=== PATIENT | male | born 1950 | race Caucasian/White ===

== ENCOUNTER 2016-08-26 09:53 | Emergency (ER) | payer MEDICARE ==
[2016-08-26 11:24] VITALS: BP 161/80
--- NOTE | 2016-08-26 12:40 | UC ---
Throat Pain/Nasal Liam HPI - HPI Summary HPI Summary: cough, sinus pain, sore throat and chest congestion--patient just flew in from [place] - History of Current Complaint Chief Complaint: UCRespiratory Stated Complaint: COUGH CONGESTION Time Seen by Provider: 08/26/16 12:33 Hx Obtained From: Patient Onset/Duration: Gradual Onset, Lasting Days - 10, Still Present Severity: Moderate Pain Intensity: 5 Pain Scale Used: 0-10 Numeric Cough: Nonproductive Associated Signs & Symptoms: Positive: Hoarseness, Sinus Discomfort, Nasal Discharge, Fever - subjective - Allergies/Home Medications Allergies/Adverse Reactions: Allergies Allergy/AdvReac Type Severity Reaction Status Date / Time No Known Allergies Allergy Verified 05/17/16 14:35 Home Medications: Home Medications Multiple Vitamins W/ Minerals [Multivitamin Men] 1 tab PO 08/26/16 [History] PMH/Surg Hx/FS Hx/Imm Hx Previously Healthy: No Endocrine History Of: Denies: Diabetes Cardiovascular History Of: Reports: Hypertension - ELEVATED IN OFFICE BUT NO MEDS Denies: Pacemaker/ICD GI/ History Of: Denies: Renal Disease Psychological History Of: Reports: Anxiety - CONTROL WITH MEDS - Surgical History Surgical History: Yes Surgery Procedure, Year, and Place: 1982 TONSILLECTOMY, [facility]. 2008 bladder polyps removed, [facility]. ROHAN IN KNEE - STUNT GROWTH ON RIGHT LEG X 2, [facility]. RIGHT FOOT SURGERY TO STRAIGHTEN FOOT, [facility]. 1967 LAZY EYE - MUSCLE CORRECTION, [facility]. TEETH EXTRACTION. EGD TO REMOVE FOREIGN BODY X2, [facility]. 1979' VASECTOMY, [facility] - Family History Known Family History: Positive: None Family History: no known medical issues in family lineage - Social History Occupation: Retired Lives: With Family Alcohol Use: Daily Alcohol Amount: 2-3 CANS BEER PER DAY Substance Use Type: None Smoking Status (MU): Former Smoker Type: Cigarettes Amount Used/How Often: 1.5-2 PPD FOR ABOUT 44 YEARS Length of Time of Smoking/Using Tobacco: 44 YEARS Have You Smoked in the Last Year: No When Did the Patient Quit Smoking/Using Tobacco: 2010 Review of Systems Constitutional: Fever - subjective, Fatigue Skin: Negative Eyes: Negative ENT: Sore Throat, Ear Ache, Nasal Discharge Respiratory: Cough Cardiovascular: Negative Gastrointestinal: Negative Genitourinary: Negative Motor: Negative Neurovascular: Negative Musculoskeletal: Negative Neurological: Negative Psychological: Negative All Other Systems Reviewed And Are Negative: Yes Physical Exam Triage Information Reviewed: Yes Appearance: No Pain Distress, Well-Nourished, Ill-Appearing - mild Vital Signs: Initial Vital Signs Temp 98.2 F 08/26/16 11:20 Pulse 69 08/26/16 11:20 Resp 18 08/26/16 11:20 BP 161/80 08/26/16 11:20 Pulse Ox 95 08/26/16 11:20 Vital Signs Reviewed: Yes Eye Exam: Normal Eyes: Positive: Conjunctiva Clear ENT Exam: Other ENT: Positive: Hearing grossly normal, Pharyngeal erythema, Nasal congestion, Nasal drainage, TMs normal. Negative: Tonsillar swelling, Tonsillar exudate, Trismus, Muffled/hoarse voice Neck exam: Normal Neck: Positive: Supple, Nontender, No Lymphadenopathy Respiratory Exam: Normal Respiratory: Positive: Chest non-tender, Lungs clear, Normal breath sounds, No respiratory distress, No accessory muscle use Cardiovascular Exam: Normal Cardiovascular: Positive: RRR, No Murmur, Pulses Normal, Brisk Capillary Refill Musculoskeletal Exam: Normal Musculoskeletal: Positive: Strength Intact, ROM Intact, No Edema Neurological Exam: Normal Neurological: Positive: Alert, Muscle Tone Normal Psychological Exam: Normal Skin Exam: Normal Diagnostics - Laboratory Diagnostic Studies Completed/Ordered: RST(-) Throat Pain/Nasal Course/Dx - Course Assessment/Plan: zithromax, flonase, increase fluids re-check prn - Differential Dx/Diagnosis Differential Diagnosis/HQI/PQRI: Laryngitis, Pharyngitis, Sinusitis, URI Provider Diagnoses: Bronchitis, URI Discharge - Discharge Plan Condition: Stable Disposition: HOME Prescriptions: Azithromycin TAB* [Zithromax TAB (Z-BIBIANA)*] 0 mg PO .Z-BIBIANA INSTRUCTIONS #6 tab Benzonatate CAP* [Tessalon CAP*] 100 mg PO TID PRN #30 cap PRN Reason: Cough Fluticasone NASAL SPRAY 50MCG* [Flonase NASAL SPRAY 50MCG*] 2 spray BOTH NARES DAILY #1 btl Patient Education Materials: Viral Syndrome (ED), Acute Cough (ED) Referrals: Aaron Bryan MD [Primary Care Provider] - If Needed
== END 2016-08-26 13:13 | disposition home or self-care (01) ==
LOC: UCEAST 09:53
DX: J40 Bronchitis, not specified as acute or chronic (principal); J06.9 Acute upper respiratory infection, unspecified; Z87.891 Personal history of nicotine dependence
CPT/HCPCS: 87651; 99212; G0463

== ENCOUNTER 2017-08-12 04:03 | Observation (INO) | payer MEDICARE ==
[2017-08-12] MEDS ORDERED: NS 0.9% 1000 ML* 1,000 ML IV SCH (04:15)
[2017-08-12 04:33] LABS: Hematocrit 43 % (42-52); Mean Corpuscular HGB Conc 35 g/dl (31-36); Mean Corpuscular Hemoglobin 33 pg (27-31); Mean Corpuscular Volume 96 fL (80-94); Mean Platelet Volume 7 um3 (7.4-10.4); Red Cell Distribution Width 13 % (10.5-15); White Blood Count 6.8 10^3/ul (3.5-10.8)
[2017-08-12 04:42] LABS: BUN/Creatinine Ratio 17.1 (8-20); Calcium 9.1 mg/dL (8.6-10.3); EGFR African American 145.1 (>60); EGFR Non-African American 112.8 (>60); Globulin 2.9 g/dL (2-4); Potassium 3.2 mmol/L (3.5-5.0); Total Bilirubin 0.4 mg/dL (0.2-1.0); Total Protein 6.9 g/dL (6.4-8.9)
[2017-08-12] MEDS ORDERED: Potassium Chlor TAB* 20 MEQ TAB.ER PO ONE (05:22)
--- NOTE | 2017-08-12 05:44 | ED ---
Sudhir Minaya Tiffany, scribed for Kyree Negron on 08/12/17 at 0410 . Neurological HPI - HPI Summary HPI Summary: This patient is a 66 year old M BIBA to [facility] with a chief complaint of confusion since minutes ago. Symptoms aggravated by nothing. Symptoms alleviated by nothing. Per EMS, the patients tried to wake the patient up because he was snoring, but was unable to do so. Other family members were also unable to wake the patient. When woken up, the patient was slow at answering simple questions and had a hard time remembering things. Patient says that the tip of his tongue feels numb. His right eyelid is slightly drooped. Patient denies numbness, headache, and vision changes. The patient does not have history of strokes. - History of Current Complaint Stated Complaint: CONFUSION Time Seen by Provider: 08/12/17 04:05 Hx Obtained From: Patient, EMS Onset/Duration: Started minutes ago, Still Present Aggravating: Nothing Alleviating: Nothing Associated Signs and Symptoms: Positive: Negative - Numbness, headache, vision changes - Allergy/Home Medications Allergies/Adverse Reactions: Allergies Allergy/AdvReac Type Severity Reaction Status Date / Time No Known Allergies Allergy Verified 05/17/16 14:35 PMH/Surg Hx/FS Hx/Imm Hx Previously Healthy: No Endocrine/Hematology History: Denies: Hx Diabetes Cardiovascular History: Reports: Hx Hypertension - ELEVATED IN OFFICE BUT NO MEDS Denies: Hx Pacemaker/ICD Respiratory History: Reports: Other Respiratory Problems/Disorders - EX SMOKER History: Denies: Hx Renal Disease Sensory History: Reports: Hx Cataracts - MINOR, Hx Contacts or Glasses - GLASSES Denies: Hx Hearing Aid Opthamlomology History: Reports: Hx Cataracts - MINOR, Hx Contacts or Glasses - GLASSES Neurological History: Reports: Other Neuro Impairments/Disorders - H/O POLIO - WEARS A BRACE ON LEFT LEG Psychiatric History: Reports: Hx Anxiety - CONTROL WITH MEDS, Hx Panic Disorder - ANXIETY - Surgical History Surgery Procedure, Year, and Place: 1982 TONSILLECTOMY, [facility]. 2008 bladder polyps removed, [facility]. ROHAN IN KNEE - STUNT GROWTH ON RIGHT LEG X 2, [facility]. RIGHT FOOT SURGERY TO STRAIGHTEN FOOT, [facility]. 1967 LAZY EYE - MUSCLE CORRECTION, [facility]. TEETH EXTRACTION. EGD TO REMOVE FOREIGN BODY X2, [facility]. 1980'S VASECTOMY, [facility] Hx Anesthesia Reactions: No Infectious Disease History: Reports: Hx Shingles - Family History Known Family History: Positive: Other - no known medical issues in family lineage - Social History Alcohol Use: Daily Alcohol Amount: 2-3 CANS BEER PER DAY Hx Substance Use: No Substance Use Type: Reports: None Hx Tobacco Use: Yes Smoking Status (MU): Former Smoker Type: Cigarettes Amount Used/How Often: 1.5-2 PPD FOR ABOUT 44 YEARS Length of Time of Smoking/Using Tobacco: 44 YEARS Have You Smoked in the Last Year: No Review of Systems Positive: Other - tip of his tongue feels numb Positive: Other - NEGATIVE: visual changes Positive: Other - eyelid is slightly drooped Neurological: Other - Confusion, slow at answering simple questions, had a hard time remembering things Negative: Headache, Numbness All Other Systems Reviewed And Are Negative: Yes Physical Exam Triage Information Reviewed: Yes Vital Signs On Initial Exam: Initial Vitals Temp Pulse Resp BP Pulse Ox 98.3 F 84 16 171/113 97 08/12/17 04:03 08/12/17 04:03 08/12/17 04:03 08/12/17 04:03 08/12/17 04:03 Vital Signs Reviewed: Yes Appearance: Positive: Well-Appearing Skin: Positive: Dry Head/Face: Positive: Normal Head/Face Inspection Eyes: Positive: Normal ENT: Positive: Normal ENT inspection Neck: Positive: Supple Respiratory/Lung Sounds: Positive: Clear to Auscultation, Breath Sounds Present Cardiovascular: Positive: Normal, RRR Abdomen Description: Positive: Nontender Bowel Sounds: Positive: Present Musculoskeletal: Positive: Other - lf leg weakness Neurological: Positive: Slurred Speech Diagnostics - Vital Signs Vital Signs Temp Pulse Resp BP Pulse Ox 08/12/17 04:03 98.3 F 84 16 171/113 97 - Laboratory Lab Results: Lab Results 08/12/17 08/12/17 08/12/17 Range/Units 04:07 04:07 04:07 WBC 6.8 (3.5-10.8) 10^3/ul RBC 4.50 (4.0-5.4) 10^6/ul Hgb 15.0 (14.0-18.0) g/dl Hct 43 (42-52) % MCV 96 H (80-94) fL MCH 33 H (27-31) pg MCHC 35 (31-36) g/dl RDW 13 (10.5-15) % Plt Count 237 (150-450) 10^3/ul MPV 7 L (7.4-10.4) um3 Neut % (Auto) 58.7 (38-83) % Lymph % (Auto) 27.9 (25-47) % [place] % (Auto) 8.5 (1-9) % Eos % (Auto) 3.8 (0-6) % Baso % (Auto) 1.1 (0-2) % Absolute Neuts (auto) 4.0 (1.5-7.7) 10^3/ul Absolute Lymphs (auto) 1.9 (1.0-4.8) 10^3/ul Absolute Monos (auto) 0.6 (0-0.8) 10^3/ul Absolute Eos (auto) 0.3 (0-0.6) 10^3/ul Absolute Basos (auto) 0.1 (0-0.2) 10^3/ul Absolute Nucleated RBC 0.02 10^3/ul Nucleated RBC % 0.3 INR (Anticoag Therapy) 0.91 (0.77-1.02) APTT 24.1 L (26.0-36.3) seconds Sodium 137 (133-145) mmol/L Potassium 3.2 L (3.5-5.0) mmol/L Chloride 101 (101-111) mmol/L Carbon Dioxide 28 (22-32) mmol/L Anion Gap 8 (2-11) mmol/L BUN 12 (6-24) mg/dL Creatinine 0.70 (0.67-1.17) mg/dL Est GFR ( Amer) 145.1 (>60) Est GFR (Non-Af Amer) 112.8 (>60) BUN/Creatinine Ratio 17.1 (8-20) Glucose 127 H (70-100) mg/dL Calcium 9.1 (8.6-10.3) mg/dL Total Bilirubin 0.40 (0.2-1.0) mg/dL AST 21 (13-39) U/L ALT 24 (7-52) U/L Alkaline Phosphatase 58 (34-104) U/L Total Protein 6.9 (6.4-8.9) g/dL Albumin 4.0 (3.2-5.2) g/dL Globulin 2.9 (2-4) g/dL Albumin/Globulin Ratio 1.4 (1-3) Blood Type Antibody Screen 08/12/17 Range/Units 04:07 WBC (3.5-10.8) 10^3/ul RBC (4.0-5.4) 10^6/ul Hgb (14.0-18.0) g/dl Hct (42-52) % MCV (80-94) fL MCH (27-31) pg MCHC (31-36) g/dl RDW (10.5-15) % Plt Count (150-450) 10^3/ul MPV (7.4-10.4) um3 Neut % (Auto) (38-83) % Lymph % (Auto) (25-47) % [place] % (Auto) (1-9) % Eos % (Auto) (0-6) % Baso % (Auto) (0-2) % Absolute Neuts (auto) (1.5-7.7) 10^3/ul Absolute Lymphs (auto) (1.0-4.8) 10^3/ul Absolute Monos (auto) (0-0.8) 10^3/ul Absolute Eos (auto) (0-0.6) 10^3/ul Absolute Basos (auto) (0-0.2) 10^3/ul Absolute Nucleated RBC 10^3/ul Nucleated RBC % INR (Anticoag Therapy) (0.77-1.02) APTT (26.0-36.3) seconds Sodium (133-145) mmol/L Potassium (3.5-5.0) mmol/L Chloride (101-111) mmol/L Carbon Dioxide (22-32) mmol/L Anion Gap (2-11) mmol/L BUN (6-24) mg/dL Creatinine (0.67-1.17) mg/dL Est GFR ( Amer) (>60) Est GFR (Non-Af Amer) (>60) BUN/Creatinine Ratio (8-20) Glucose (70-100) mg/dL Calcium (8.6-10.3) mg/dL Total Bilirubin (0.2-1.0) mg/dL AST (13-39) U/L ALT (7-52) U/L Alkaline Phosphatase (34-104) U/L Total Protein (6.4-8.9) g/dL Albumin (3.2-5.2) g/dL Globulin (2-4) g/dL Albumin/Globulin Ratio (1-3) Blood Type A Positive Antibody Screen Negative Result Diagrams: 08/12/17 04:07 08/12/17 04:07 Lab Statement: Any lab studies that have been ordered have been reviewed, and results considered in the medical decision making process. - Radiology CXR Radiology Interpretation Completed By: ED Physician - no acute changes - CT Brain CT Interpretation Completed By: Radiologist - Normal head. ED physician has reviewed this radiology report. - EKG 04:15 Cardiac Rate: NL EKG Rhythm: Sinus Rhythm - 79 BPM EKG Interpretation: No acute changes NIH Scale - NIH Scale Level of Consciousness: Alert/Keenly Responsive Ask Patient the Month and His/Her Age: Both Correct Ask Pt to Open/Close Eyes and Regional Medical Director/Release Non-Paretic Hand: Both Correctly Best Gaze (Only Horizontal Eye Movement): Normal Visual Field Testing: No Visual Loss Facial Paresis-Pt to Smile & Close Eyes or Grimace Symmetry: Minor Paralysis Motor Function - Right Arm: No Drift-Holds 10 Seconds Motor Function - Left Arm: No Drift-Holds 10 Seconds Motor Function - Right Leg: No Drift-Holds 10 Seconds Motor Function - Left Leg: Effort Against [place] Limb Ataxia-Must be out of Proportion to Weakness Present: Absent Sensory (Use Pinprick to Test Arms/Legs/Trunk/Face): Normal Best Language (Describe Picture, Name Items): No Aphasia Dysarthria (Read Several Words): Slurs Some Words Extinction and Inattention: No Abnormality Total Score: 4 Course/Dx - Course Course Of Treatment: This patient is a 66 year old M BIBA to [facility] with a chief complaint of confusion since minutes ago. stroke code called.The patient does not have history of strokes. An EKG reveals sinus rhythm (79 BPM) and no acute changes. CT Brain reveals, per radiologist, Normal head. CXR is, per ED physician, no acute changes. Bloodwork/UA obtained. We discussed patient care with Dr. Villasenor who will inform the doctor coming in for the morning shift on the patient's situation. The patient will be admitted. The patient is agreeable with this plan. - Differential Dx Differential Diagnoses Neuro: Positive: Cerebrovascular Accident, Intracranial Bleed, Seizure Disorder, Vasovagal Reaction - Diagnoses Provider Diagnoses: Altered mental status, Seizure During the Visit The Following Alert/Code Occurred: Code Clancy - Physician Notifications Discussed Care Of Patient With: Alex Villasenor Time Discussed With Above Provider: 05:34 Instructed by Provider To: Other - Dr. Villasenor (hospitalist) will inform the doctor coming in for the morning shift on the patient's situation - Critical Care Time Critical Care Time: 30-74 min Discharge - Discharge Plan Condition: Fair Disposition: ADMITTED TO [facility] Referrals: Aaron Bryan MD [Primary Care Provider] - The documentation as recorded by the Sudhir daley Tiffany accurately reflects the service I personally performed and the decisions made by Jamil ballard Emmanuel.
[2017-08-12 08:49] LABS: Urine Bilirubin Negative (Negative); Urine Glucose Negative (Negative); Urine Nitrite Negative (Negative)
--- NOTE | 2017-08-12 10:07 | RAD ---
Indication: Stroke. CT of the brain was performed without IV contrast. Ventricular structures are midline. No midline shift is noted. The extra-axial spaces are unremarkable. There is no evidence of intracranial mass or hemorrhage. No other high or low density lesions are identified. The extra-axial spaces are unremarkable. There is no evidence of intracranial mass or hemorrhage. No other high or low density lesions are identified. Mastoid air cells and paranasal sinuses are otherwise unremarkable. IMPRESSION: No intracranial mass or hemorrhage is noted. Findings were called to Dr. Negron at 4:31 AM.
[2017-08-12] MEDS ORDERED: Ibuprofen TAB* 400 MG PO PRN (11:10)
[2017-08-12] MEDS ORDERED: Morphine INJ* 2 MG/ML 1 ML SYRINGE (TWO MG - NEW SYRINGE VERSION) IV PRN (11:11)
[2017-08-12] MEDS ORDERED: Acetaminophen TAB* 325 MG PO PRN (11:11)
[2017-08-12] MEDS: PARoxetine HCL TAB* 40 MG PO SCH (11:46)
[2017-08-12] MEDS: amLODIPine TAB* 5 MG PO SCH (11:47)
--- NOTE | 2017-08-12 12:32 | RAD ---
Indication: Stroke. Single frontal view of the chest performed at 0425 hours was reviewed. Comparison is made with previous exam dated May 26, 2016. No mediastinal shift is noted. Heart is of normal size and configuration. Lung kumar appear clear. IMPRESSION: NO ACTIVE CARDIOPULMONARY DISEASE IS NOTED.
--- NOTE | 2017-08-12 15:55 | CONS ---
CC: Aaron Bryan MD CONSULTATION REPORT: DATE OF CONSULT: 08/12/17 REQUESTING PHYSICIAN: Kj Thomson MD REASON FOR CONSULT: Possible seizure. HISTORY OF PRESENT ILLNESS: Mr. Ko Akhtar is a 66-year-old gentleman with history of anxiety and hypertension who went to bed last night about 9:30. At 2:45 AM, his noted that he was snoring very loudly in an abnormal way. It was associated with bubbly breathing. She and family members tried to wake him up and could not. After about 5 minutes, the snoring stopped, then he started having garbled speech upon waking and it took 20 minutes before he was more coherent, but still giving wrong answers such as he did not know who the president was and the year. He started to improve in the emergency room and now he is back to normal with the exception that he has a sore tongue. Mr. Akhtar has no epilepsy history. There is a history of brother who has had repeat episodes of passing out with garbled speech for which he has been given the diagnosis of "vasovagal syncope." There is no history of head trauma. He does have a remote history of polio at age 2. He has had no recent starting or cessation of medications. He is on paroxetine. He does drink 3 to 4 beers at night and realizes this may be too much. He has not stopped drinking beer recently and his habits have not changed. PAST MEDICAL HISTORY: Includes; 1. Anxiety more than depression. 2. GERD. 3. Hypertension. 4. Allergies. 5. History of polio at age 2 with left leg structural changes. He wears a brace for his left leg. It can be cold on a cold day. PAST SURGICAL HISTORY: Includes; 1. Eye correction in 1967. 2. Remote history of surgery to his right leg to 'retard growth', left foot for correction of position. 3. Tonsillectomy. MEDICATIONS: His medications at home include; 1. Paroxetine 40 mg p.o. daily. 2. Omeprazole 40 mg p.o. daily. 3. Hydrochlorothiazide 25 mg p.o. daily. 4. Cetirizine 10 mg p.o. daily. 5. Aspirin 81 mg p.r.n. 6. Ibuprofen 2400 mg p.r.n. In hospital, he does have prescriptions for many different pain medications including; 1. Ibuprofen 400 mg p.o. q.6 hours p.r.n. 2. Acetaminophen 650 mg p.o. q.4 hours p.r.n. 3. Morphine 2 mg IV q.4 hours p.r.n. pain. He has taken a dose of morphine for headache. 4. He also has continued on Paxil 40 mg p.o. daily. 5. Omeprazole 40 mg p.o. daily. 6. Hydrochlorothiazide 25 mg p.o. daily. ALLERGIES: He has no known drug allergies. FAMILY HISTORY: Include mother who at 86 of osteoporosis and he believes some respiratory problems. Father at 94. He had a colostomy and may have had colon cancer. He has a brother who has repeat episodes of passing out and garbled speech. He uses CPAP. Brother who also has a colostomy may have colon cancer and a brother was 80 with breathing problems. REVIEW OF SYSTEMS: There has been no change in vision. He does wear glasses and thinks he may need a new prescription. He has had no difficulty with hearing. He does have soreness underneath his tongue. He had his upper dentures out during the night. He has not had a history of headache until today. He has had right shoulder pain, but this has been more chronic particularly in the posterior aspect of the shoulder and when trying to do resistance strength. There has been no other chest pain, chest pressure, shortness of breath, palpitations. No change in bowel or bladder habits. No incontinence. He has had dry skin and a rash that he has treated with Dermatology for years. He has right leg sciatica. This morning his right hand was so colder. Psychiatric history is as mentioned above. There has been no weight loss, drenching night sweats, or high fevers for unknown reason. PHYSICAL EXAM: On examination Mr. Akhtar's most recent temperature was 97.6 degrees Fahrenheit, heart rate was 60 and regular, respiratory rate 16, saturation was 98%, and blood pressure was up to 182/86. His blood pressure during the stay has varied from a systolic of 126 to 182 and a diastolic of 71 to 113. He had a regular cardiac rhythm. His lungs were clear to auscultation. There was no carotid bruit. Peripheral pulses were intact. There was an abrasion under his tongue. There were some scabs noted on distal right leg, which is similar to what he has had in the past on the other leg. He is awake, alert, articulate. His pupils were equal and responsive to light. He had some abnormal vasculature in his fundi and I had a hard time seeing his discs. He had full extraocular movements, full kumar to confrontation. There is no nystagmus. He had equal facial expression, sensation, and hearing. Palate was upgoing. Tongue was midline. Sternocleidomastoid and trapezius were 5/5 in strength. There was normal bulk and tone of the upper extremities and right lower extremity with no pronator drift. He did have some soreness in his right shoulder with giveaway weakness in the deltoid, otherwise was strong in the upper extremities. Right lower extremity was strong. In the left lower extremity, there was diffuse atrophy and the leg was shorter. This is noted to be chronic. He gave 3/5 strength in hip flexion, knee extension, and knee flexion without full range of movement. There was no movement in the ankle dorsiflexion and there was 2/3 movement of the toes. On sensory examination, vibration sensation was decreased by approximately 15 seconds at the large toes. Proprioception was intact. There was no asymmetries or dependent changes to pinprick, cold, or light touch. Reflexes were 2+ and symmetric with the exception of the left leg, was absent at the knee and ankle and right ankle that was 1+. Toes are flexor response. Gait was not checked yet because of lack of brace and asymmetry of legs and necessity of brace for walking. DIAGNOSTIC STUDIES/LAB DATA: Data includes chest x-ray which showed no infiltrate. CT of the brain which I reviewed directly and there was no clear new lesion or area of edema. His CBC showed elevated MCV, MCH with normal white count, hemoglobin, hematocrit, and platelets. His PTT was elevated at 24.1. His metabolic panel showed potassium at 3.2, glucose was high at 127. His urinalysis was negative. IMPRESSION: Mr. Akhtar is a 66-year-old gentleman with history of anxiety and depression on paroxetine, history of alcohol use with 3 to 4 beers at night who woke up with confusion and sore tongue with event witnessed by his who describes sonorous breathing, snoring/mouth snoring with gurgling followed by confusion and slow recovery most consistent with a postictal state. He was seen by telemetry at [facility] for evaluation of Code D[place], and I am told verbally that they felt this was a seizure and I agree with their interpretation. No clear epilepsy risk factors outside of a brother with repeat episodes of loss of consciousness with garbled speech was obtained. Of note, his brother currently has a diagnosis of vasovagal syncope; however, it is unclear whether he had a neurology workup. There is risk factor of paroxetine; however, he has been on this for over a year, it can lower seizure threshold. He is drinking 3 to 4 beers at night. There has been no cessation to suggest a withdrawal seizure. At this point, this is the first known seizure of his life. Education was given regarding seizures, different age groups that they can occur. The increased incidence can occur after age 60. The importance of further workup with MRI with contrast to look for an underlying lesion as well as an EEG. We will plan to monitor him closely overnight with seizure precautions. At this point during [place] holiday, there is no routine MRI or EEG. If he is stable, we will consider discharge with the workup early this week as an outpatient, follow up with me. If there is a repeat event, then we will need to start medication. I would consider medications such as Keppra which would not interact with his other medications. TIME SPENT: Over an hour was spent in direct [id number] patient care with another 30 minutes of data review and coordination of care for a total of 90 minutes. Education was given to the patient, , and daughter remotely by cell phone. All questions were answered. [id number]/[facility] #: [id number] [facility]
[2017-08-12] MEDS ORDERED: CMC Melatonin (NF) 3 MG TAB PO PRN (20:51)
--- NOTE | 2017-08-13 04:27 | HP ---
CC: Irvin. ADMISSION HISTORY AND PHYSICAL: DATE OF ADMISSION: 08/12/17 CHIEF COMPLAINT: Confusion. HISTORY OF PRESENT ILLNESS: Mr. Akhtar is 66-year-old man with history of anxiety and hypertension who was sleeping overnight and his noted some odd breathing or snoring. She tried to wake him u p and was unable to arouse him. She alerted other family members and they also had trouble arousing him. Eventually, he was able to wake, but he was quite confused and he was brought to the ER. There was initially concern about wake up stroke. The patient had a CT scan and a teleneurology consult a nd seizure was suspected. The patient had NIH Stroke Scale of 4, but this had mainly to do with left leg weakness and some slurred speech. The patient has chronic leg weakness in the left from polio. PAST MEDICAL HISTORY: Includes hypertension, GERD, anxiety, and history of polio as above. PAST SURGICAL HISTORY: Right knee epiphysis fusion as a child, left ankle surgery and an umbilical h ernia repair. MEDICATIONS ON ADMISSION: 1. Zyrtec 10 mg p.o. daily p.r.n. 2. Hydrochlorothiazide 25 mg p.o. q.a.m. 3. Omeprazole 40 mg p.o. daily. 4. Paxil 40 mg p.o. q.a.m. ALLERGIES: None. SOCIAL HISTORY: He works part-time as a halfway service. He is . He has 2 children. His Talia is his healthcare proxy. He quit tobacco in 2010. Drinks alcohol 3 to 4 beers per day. No recreational drugs. FAMILY HISTORY: Notable for mother at age 86, she had osteoporosis prior to . Father at age 95 from old age. He has a brother with colon cancer. REVIEW OF SYSTEMS: Patient denies any fevers, weight loss, anorexia. Patient denies any chest pain or palpitations. The patient denies any cough, hemoptysis, shortness of breath. The patient does rep ort some left hand tingling in the last few weeks. He also reports seeing Dermatology in the last we ek regarding itching and rashes on his legs. The remainder of 14-point review of systems is negative other than mentioned in the HPI. PHYSICAL EXAMINATION GENERAL: He is alert, in no acute distress. VITAL SIGNS: Temperature 36.8, pulse 60, respirations are 16, blood pressure is 126/87, oxygen satur ation 95%. HEENT: Head is normocephalic, atraumatic. Sclerae anicteric. Pupils are equal, round and reactive to light and accommodation. Oropharynx is moist. No lesions. The tongue has some ecchymosis at the tip consistent with contusion from tongue biting. NECK: No adenopathy. No thyromegaly. No carotid bruit. LUNGS: Clear to auscultation and percussion bilaterally. HEART: Regular rate and rhythm without murmurs or gallops. ABDOMEN: Soft, nontender. Positive bowel sounds. No hepatosplenomegaly. EXTREMITIES: No peripheral edema. MUSCULOSKELETAL: Exam is notable for atrophy of the left lower extremity and for shortening and exte rnal rotation of that leg. NEUROLOGIC: Exam is notable for right eye ptosis, which the patient states is chronic. The left low er extremity is 3/5 strength. He can do the leg lift on that side, but cannot really resist any pres sure. Cranial nerves II through XII are intact. Upper motor strength is normal. Speech is fluent. He is alert and oriented x3. DIAGNOSTIC STUDIES/LAB DATA: Sodium 137, potassium 3.2, chloride 101, bicarb 28, BUN 12, creatinine 0.7, glucose 127, calcium 9.1. Albumin 4.0, AST 21, ALT 24, bilirubin 0.4. INR 0.91, PTT 24.1. Wh ite count 6.8, hemoglobin 15.0, hematocrit 43%, platelets 237. Urinalysis is negative. EKG shows normal sinus rhythm, normal axis. T-wave flattening in III and aVF. Chest x-ray shows low volumes, no infiltrates or effusions. CT is negative for infiltrates or effusions. Head CT is negat walt for infarct or bleed. ASSESSMENT AND PLAN: A 66-year-old man presenting with new onset of seizures versus a transient isch emic attack. Concern for new onset seizure would be aneurysm or neoplasm or scarring processes of br ain from previous trauma or infection. The patient will be observed on seizure precautions and have a neurology consult. I do not see any medications on his list that would cause seizures, although oc casionally Paxil has been implicated, I am unclear of cause and effect. Patient will need an MRI and an EEG, but this might take several days to arrange in the hospital. He probably could be discharge d home after observation with plans for outpatient workup. The patient has hypokalemia likely due to hydrochlorothiazide. This will be repleted orally and rechecked in the morning. For hypertension, we will continue on his hydrochlorothiazide and amlodipine. For DVT prophylaxis, he will have sequential compression devices as he is only moderate risk. [id number]/[facility] #: [id number]
[2017-08-13 06:59] LABS: BUN/Creatinine Ratio 17.5 (8-20); Calcium 8.7 mg/dL (8.6-10.3); EGFR African American 163.9 (>60); EGFR Non-African American 127.4 (>60); Potassium 3.6 mmol/L (3.5-5.0)
[2017-08-13] MEDS ORDERED: Omeprazole CAP* 20 MG PO SCH (07:30)
[2017-08-13 08:26] VITALS: BP 143/83
[2017-08-13] MEDS: PARoxetine HCL TAB* 40 MG PO SCH (08:49)
[2017-08-13] MEDS: amLODIPine TAB* 5 MG PO SCH (08:50)
[2017-08-13] MEDS ORDERED: Hydrochlorothiazide TAB* 25 MG PO SCH (09:00)
--- NOTE | 2017-08-13 11:22 | PN ---
Progress Note - Progress Note Date of Service: 08/13/17 Note: Discharge Note Primary diagnosis: seizure suspect Secondary diagnoses: Hypertension GERD allergic rhinitis anxiety history of polio w/ LT leg weakness hypokalemia Procedures: none Consultations: Dr. Peña of neurology Pertinent lab/radiology results: CT brain: normal Laboratory Tests 08/12/17 08/12/17 08/13/17 04:07 04:07 06:18 WBC 6.8 Hct 43 Plt Count 237 Potassium 3.2 L 3.6 Creatinine 0.70 0.63 L Glucose 127 H 118 H Tests pending on discharge: MRI ordered EEG ordered Physical exam on discharge: Selected Entries 08/13/17 08:00 Temperature 37.2 C Pulse Rate 70 Respiratory 18 Rate Blood Pressure 143/83 (mmHg) Blood Pressure 97 Mean O2 Sat by Pulse 97 Oximetry LT leg 3+/5 weakness, atrophy
--- NOTE | 2017-08-14 04:59 | PN ---
FOLLOWUP NOTE: DATE OF SERVICE: HISTORY OF PRESENT ILLNESS: Mr. Akhtar has had no further episodes. He is feeling better. His ton ash feels like it is healing. He has had no new numbness or weakness in his arms or legs. No incontinence. He does bring up issues with umbilical hernia after repair and plans to reach out to his surgeon, Dr. Stark. PHYSICAL EXAMINATION: On today's visit, his temperature was 99, heart rate was 70, respiratory rate 18, saturation was 97%, and blood pressure was 143/83. He is awake, alert, and oriented. His facial expression was symmetric. There was no dysarthria. He was relaxed. IMPRESSION: Mr. Akhtar is a 66-year-old gentleman admitted with symptoms most consistent with noctu rnal seizure of unclear etiology. No MRI or EEG services are available during the next 48 hours. Ac cordingly, we will plan to discharge him home given his stability with workup as an outpatient. If cristóbal farmer has any repeat events, he is to come back to hospital. TIME SPENT: Over 50 minutes was spent in direct patient care including discussing case with hospital ist. Over 50% of time was spent in education. All questions were answered. [id number]/[facility] #: [id number]
--- NOTE | 2017-08-14 11:17 | DS ---
CC: Dr. Bryan; Dr. Peña DISCHARGE SUMMARY: DATE OF ADMISSION: 08/12/17 DATE OF DISCHARGE: 08/13/17 PRIMARY DIAGNOSIS: Suspected seizure. SECONDARY DIAGNOSES: 1. Hypertension. 2. Gastroesophageal reflux disease. 3. Allergic rhinitis. 4. Anxiety. 5. History of polio with left leg weakness. 6. Hypokalemia. MEDICATIONS ON DISCHARGE: 1. Amlodipine 5 mg p.o. daily. 2. Cetirizine 10 mg p.o. q.a.m. p.r.n. 3. Hydrochlorothiazide 25 mg p.o. daily. 4. Ibuprofen 400 mg p.o. q.6 hours p.r.n. headache. 5. Melatonin 3 mg p.o. q.h.s. p.r.n. insomnia. 6. Omeprazole 40 mg p.o. daily. 7. Paroxetine 40 mg p.o. q.a.m. HOSPITAL COURSE: The patient is a 66-year-old male with history of hypertension and anxiety who woke up after having some sonorous unusual breathing and difficulty being aroused by his and family. After he woke up, he had apparent postictal confusion. The patient was admitted to observation. H e had no further seizure activity. Telemetry showed no heart arrhythmias. LABORATORY DATA: Laboratory data notable for potassium 3.2 on admission, up to 3.6 on discharge. He moglobin 15.0, hematocrit 42%, platelets 237,000, MCV 96. The patient had a head CT that showed no i nfarct or bleed. Chest x-ray was negative. EKG showed normal sinus rhythm, normal axis, T-wave himanshu ening in leads III and aVF. No other concerning findings. The patient was seen in consultation by Dr. Peña. She agreed that there may be a first seizure oc [facility] and recommended MRI of the brain with contrast and EEG. Neither of these could be arranged o n the holiday weekend and he feels medically stable. He was advised to be discharged and follow up f or outpatient testing. Differential diagnosis for the cause of seizures would include neoplasm, small infarct or scar in the brain from her previous trauma. Taking medications including paroxetine have been known to lower seizure threshold, but the patient is not newly on this medication. Alcohol use and some withdrawal also could cause seizure, but the patient does not have alcohol withdrawal. DISPOSITION: Home. ACTIVITY: As tolerated. FOLLOWUP: Follow up with Dr. Bryan within a week and Dr. Peña after testing is completed as ind icated. [id number]/[facility] #: [id number]
== END 2017-08-13 12:13 | disposition home or self-care (01) ==
LOC: ED 04:03 → MEDTELE 08:33
PROVIDERS: ADMIT Internal Medicine; ATTEND Internal Medicine
DX: R41.82 Altered mental status, unspecified (principal); R41.0 Disorientation, unspecified; I10 Essential (primary) hypertension; K21.9 Gastro-esophageal reflux disease without esophagitis; J30.9 Allergic rhinitis, unspecified; F41.9 Anxiety disorder, unspecified; Z86.12 Personal history of poliomyelitis; E87.6 Hypokalemia; Z79.899 Other long term (current) drug therapy; Z87.891 Personal history of nicotine dependence; R47.81 Slurred speech; I69.854 Hemiplegia and hemiparesis following other cerebrovascular disease affecting left non-dominant side
CPT/HCPCS: 36415; 70450; 71010; 80048; 80053; 81003; 85025; 85610; 85730; 86850; 86900; 86901; 93005; 96374; 99291; A9270-GY; G0378; J2270

== ENCOUNTER 2018-02-12 07:06 | Emergency (ER) | payer MEDICARE ==
[2018-02-12 07:36] VITALS: BP 160/81
--- NOTE | 2018-02-12 09:39 | RAD ---
Indication: Right leg edema. Duplex Doppler sonography of the deep venous system of the right lower extremity deep venous system was performed. Bilaterally the common femoral veins appear patent and compressible. Right proximal greater saphenous vein, proximal deep femoral vein, femoral vein, popliteal vein, posterior tibial veins and peroneal veins appear patent and compressible. IMPRESSION: NO EVIDENCE OF DEEP VENOUS THROMBOSIS IS IDENTIFIED.
--- NOTE | 2018-02-12 10:20 | UC ---
My Minaya Gabriel, scribed for Omar Stephens MD on 02/12/18 at 0726 . Lower Extremity/Ankle HPI - HPI Summary HPI Summary: This patient is a 67 year old M presenting to [facility] c/o swelling to the right leg for the past 2 days. He states he has had similar sx in the past but never as severe. Pts left leg has been affected by polio so he compensates with the right, he believe this may be contributing to the sx. The patient rates the pain 4/10 in severity. Patient reports rash on the RLE that he sees dermatology for. Patient denies increased SOB from baseline,LE pain, and redness. The pt states the last time he went to [facility] his prescriptions 2 weeks ago at the pharmacy they forgot to give him one of his pills but he is unsure what the purpose of it was. He believes it might be his diuretic. Pt also complains of bilateral UE pain and tingling that is chronic. Pt denies hx of CHF. - History of Current Complaint Stated Complaint: RIGHT SWELLING FEET Time Seen by Provider: 02/12/18 07:15 Hx Obtained From: Patient Onset/Duration: Lasting Days, Still Present Severity Initially: Mild Severity Currently: Moderate Pain Intensity: 4 Pain Scale Used: 0-10 Numeric Able to Bear Weight: Yes - Allergies/Home Medications Allergies/Adverse Reactions: Allergies Allergy/AdvReac Type Severity Reaction Status Date / Time No Known Allergies Allergy Verified 08/17/17 09:39 Home Medications: Home Medications Atorvastatin* [Lipitor 20 MG*] 20 mg PO DAILY 02/12/18 [History Confirmed ] amLODIPine TAB* [Norvasc 5 mg TAB*] 10 mg PO DAILY 02/12/18 [History Confirmed 02/12/18] levETIRAcetam [Keppra] 1,000 mg PO DAILY 02/12/18 [History Confirmed 02/12/18] PMH/Surg Hx/FS Hx/Imm Hx - Additional Past Medical History Additional PMH: polio Cardiovascular History: Hypertension, Other Other Cardiovascular History: HLD Neurological History: Seizures - Surgical History Surgical History: Yes Surgery Procedure, Year, and Place: [place] [facility] bladder polyps removed[place] [facility]AN IN KNEE - STUNT GROWTH ON RIGHT LEG X 2, [facility]. RIGHT FOOT SURGERY TO STRAIGHTEN FOOT, [facility]. 1967 LAZY EYE - MUSCLE CORRECTION, [facility]. TEETH EXTRACTION. EGD TO REMOVE FOREIGN BODY X2, [facility]. 1979' VASECTOMY, [facility] - Family History Known Family History: Positive: Other - no known medical issues in family lineage Negative: Diabetes, Renal Disease, Respiratory Disease, Seizure Disorder Family History: no known medical issues in family lineage - Social History Alcohol Use: Rare Alcohol Amount: 2-3 CANS BEER PER DAY Substance Use Type: None Smoking Status (MU): Former Smoker Type: Cigarettes Amount Used/How Often: 1.5-2 PPD FOR ABOUT 44 YEARS Length of Time of Smoking/Using Tobacco: 44 YEARS Have You Smoked in the Last Year: No When Did the Patient Quit Smoking/Using Tobacco: 2010 Review of Systems Skin: Other - abrasion Musculoskeletal: Edema Neurological: Other - bilateral shoulder pain and tingling All Other Systems Reviewed And Are Negative: Yes Physical Exam - Summary Physical Exam Summary: General: well-appearing, no pain distress Skin: warm, color reflects adequate perfusion, dry, abrasion to the dorsum of the right foot without erythema, discharge, or streaking Head: normal Eyes: EOMI, OMI ENT: normal Neck: supple, nontender Respiratory: CTA, breath sounds present Cardiovascular: RRR Abdomen: soft, nontender Bowel: present Musculoskeletal: edema in the RLE, good pulses, normal capillary refill, no sensation deficits. Neurological: sensory/motor intact, A&O x3 Psychological: affect/mood appropriate Triage Information Reviewed: Yes Vital Signs: Initial Vital Signs Temp 97.9 F 02/12/18 07:33 Pulse 61 02/12/18 07:33 Resp 14 02/12/18 07:33 BP 160/81 02/12/18 07:33 Pulse Ox 99 02/12/18 07:33 Vital Signs Reviewed: Yes Diagnostics - Radiology US Radiology Interpretation Completed By: Radiologist - US RLE reveals, per radiology, NO EVIDENCE OF DEEP VENOUS THROMBOSIS IS IDENTIFIED. Dr. Stephens has reviewed this report. Re-Evaluation - Re-Evaluation First Eval Re-Evaluation Time: 09:49 Change: Unchanged Comment: I discussed test results with the patient and he expressed interest in having his seizure medication level checked. Lower Extremity Course/Dx - Course Course Of Treatment: Medications reviewed. VENOUS DOPPLER RESULTS DISCUSSED WITH THE PATIENT. LABS DRAWN TO EVALUATE POSSIBLE CAUSES OF EDEMA. THE PATIENT HAS BEEN MISSING ONE OF HIS MEDICATIONS FOR 2 WEEKS, POSSIBLY HCTZ. HE WILL CHECK WHICH MEDICATION HE IS MISSING AND F/U WITH HIS PMD. RECHECK SOONER IF WORSE. - Differential Dx/Diagnosis Provider Diagnoses: LEG EDEMA. HTN Discharge - Sign-Out/Discharge Documenting (check all that apply): Discharge/Admit/Transfer - Discharge Plan Condition: Stable Disposition: HOME Patient Education Materials: Edema (ED) Referrals: Aaron Bryan MD [Primary Care Provider] - Additional Instructions: Your blood pressure was elevated during todays visit; please follow up with your primary care provider within a week for further evaluation. FOLLOW UP WITH YOUR DOCTOR. CALL YOUR PHARMACY TO DETERMINE IF YOU ARE TAKING THE HCTZ. GET RECHECKED FOR ANY WORSENING OF YOUR CONDITION OR QUESTIONS OR CONCERNS. - Billing Disposition and Condition Condition: STABLE Disposition: Home The documentation as recorded by the My daley Gabriel accurately reflects the service I personally performed and the decisions made by me, Omar Stephens MD.
[2018-02-12 12:49] LABS: ABS Basophils 0.1 10^3/ul (0-0.2); ABS Eosinophils 0.3 10^3/ul (0-0.6); ABS Monocytes 0.6 10^3/ul (0-0.8); ABS Neutrophils 3.6 10^3/ul (1.5-7.7); ABS Nucleated RBC 0 10^3/ul; EGFR Non-African American 142.6 (>60); Eosinophil % 3.9 % (0-6); Hematocrit 42 % (42-52); Hemoglobin 15.1 g/dl (14.0-18.0); Lymphocyte % 30.3 % (25-47); Mean Corpuscular HGB Conc 36 g/dl (31-36); Mean Corpuscular Hemoglobin 34 pg (27-31); Mean Corpuscular Volume 94 fL (80-94); Mean Platelet Volume 7.5 um3 (7.4-10.4); Nucleated Red Blood Cells % 0.1; Platelet Count 276 10^3/ul (150-450); Red Blood Count 4.44 10^6/ul (4.00-5.40); Red Cell Distribution Width 13 % (10.5-15); White Blood Count 6.6 10^3/ul (3.5-10.8)
--- NOTE | 2018-02-13 13:14 | UC ---
- Progress Note Progress Note: cmp reviewed no change ljj 02/13/2018 Re-Evaluation - Re-Evaluation First Eval Re-Evaluation Time: 09:49 Change: Unchanged Comment: I discussed test results with the patient and he expressed interest in having his seizure medication level checked. Discharge - Sign-Out/Discharge Documenting (check all that apply): Post-Discharge Follow Up - Discharge Plan Condition: Stable Disposition: HOME Patient Education Materials: Edema (ED) Referrals: Aaron Bryan MD [Primary Care Provider] - Additional Instructions: Your blood pressure was elevated during todays visit; please follow up with your primary care provider within a week for further evaluation. FOLLOW UP WITH YOUR DOCTOR. CALL YOUR PHARMACY TO DETERMINE IF YOU ARE TAKING THE HCTZ. GET RECHECKED FOR ANY WORSENING OF YOUR CONDITION OR QUESTIONS OR CONCERNS. - Billing Disposition and Condition Condition: STABLE Disposition: Home
--- NOTE | 2018-02-13 20:25 | UC ---
- Progress Note Progress Note: Patient's levetiracetam level is low. He needs to be called back and be informed that his level is low. He should take 500mg BID today and follow up with his PMD. Re-Evaluation - Re-Evaluation First Eval Re-Evaluation Time: 09:49 Change: Unchanged Comment: I discussed test results with the patient and he expressed interest in having his seizure medication level checked. Discharge - Sign-Out/Discharge Documenting (check all that apply): Discharge/Admit/Transfer - Discharge Plan Condition: Stable Disposition: HOME Patient Education Materials: Edema (ED) Referrals: Aaron Bryan MD [Primary Care Provider] - Additional Instructions: Your blood pressure was elevated during todays visit; please follow up with your primary care provider within a week for further evaluation. FOLLOW UP WITH YOUR DOCTOR. CALL YOUR PHARMACY TO DETERMINE IF YOU ARE TAKING THE HCTZ. GET RECHECKED FOR ANY WORSENING OF YOUR CONDITION OR QUESTIONS OR CONCERNS. - Billing Disposition and Condition Condition: STABLE Disposition: Home
== END 2018-02-12 09:54 | disposition home or self-care (01) ==
LOC: UCEAST 07:06
DX: R60.0 Localized edema (principal); R21 Rash and other nonspecific skin eruption; M25.512 Pain in left shoulder; M25.511 Pain in right shoulder; R20.2 Paresthesia of skin; S90.811A Abrasion, right foot, initial encounter; X58.XXXA Exposure to other specified factors, initial encounter; Y93.9 Activity, unspecified; Y92.9 Unspecified place or not applicable; I10 Essential (primary) hypertension; E78.5 Hyperlipidemia, unspecified; Z86.12 Personal history of poliomyelitis; R56.9 Unspecified convulsions; Z87.891 Personal history of nicotine dependence
CPT/HCPCS: 36415; 80053; 80177; 83880; 85025; 99211; G0463